=== PATIENT | male | born 1975 | race Caucasian/White ===

== ENCOUNTER → 2017-06-29 | Outpatient (CLI) | payer OTHER ==
[~2017-06-29] MED LIST: AMT50 PO; FRCT/ PO; TOPI25TA99 PO
== END | disposition home or self-care (01) ==
LOC: C.LAB1850 16:43
PROVIDERS: ATTEND Internal Medicine Rheumatology
DX: I73.00 Raynaud's syndrome without gangrene (principal); M79.89 Other specified soft tissue disorders